=== PATIENT | female | born 1955 | race Caucasian/White ===

== ENCOUNTER → 2016-10-20 | Outpatient (CLI) | payer OTHER ==
[~2016-10-20] MED LIST: MULT-506 PO; OMEG10002 PO
== END | disposition home or self-care (01) ==
LOC: C.MAMM 14:50
PROVIDERS: ATTEND Specialist
DX: Z12.31 Encounter for screening mammogram for malignant neoplasm of breast (principal)

== ENCOUNTER → 2016-10-28 | Outpatient (CLI) | payer OTHER ==
--- NOTE | 2016-10-28 17:07 | MAMMOGRAPHY REPORT ---
BILATERAL DIGITAL DIAGNOSTIC MAMMOGRAM: 10/20/2016 CLINICAL HISTORY: Routine screening. Patient has no complaints. At the time of right breast stereo tactic biopsy approximately 1 year ago, it was recommended that the patient return for a short inter kasie follow-up for other non-biopsied clustered microcalcifications in the right breast. No follow-u p was obtained at our institution. TECHNIQUE: Bilateral breast tomosynthesis in addition to standard 2D mammography was performed. Curr ent study was also evaluated with a Computer Aided Detection (CAD) system. COMPARISON: Comparison is made to exams dated: 10/16/2015 mammogram, 10/02/2015 mammogram, 5 mammogram, 10/16/2015 stereotactic biopsy, and 10/02/2015 [facility] . BREAST COMPOSITION: The tissue of both breasts is heterogeneously dense, which may obscure small ma sses. FINDINGS: There are stable post biopsy changes in the upper outer posterior right breast, at the sit e of prior benign stereotactic biopsy. Other groupings of microcalcifications remain in the lateral and medial superior right breast for which additional follow-up spot magnification views were recom mended at the time of stereotactic biopsy performed 10/16/2015. The patient returned for additional spot magnification views on 10/28/2016. When comparing these additional images, particularly the s pot magnification ML views, the additional cluster of microcalcifications inferior to the biopsied c luster, also inferior to the biopsy marker clip on the current view, appears stable. It measures ap proximately 6 mm in greatest dimension. This is located in the medial posterior breast on the CC vi ew. A few other scattered round microcalcifications are identified but no other definite grouping o r cluster. No new suspicious mass, architectural distortion or other cluster of new microcalcifications are see n bilaterally. IMPRESSION: ACR-BI-RADS CATEGORY 3: PROBABLY BENIGN Stable mammographic appearance of the breasts, without new suspicious mass or architectural distorti on. A 6 mm grouping of round and punctate microcalcifications in the upper inner posterior right br east has been stable based on spot magnification views dating back to 10/02/2015, and appeared simil ar to the biopsied cluster that yielded benign pathology. Options of stereotactic biopsy or another close follow-up exam were provided and we will opt to follow these calcifications closely with repe at spot magnification views. Given that it has been 12 months since the prior spot magnification vi ews, would recommend a bilateral diagnostic mammogram including right spot magnification views in 12 months. Approximately 10% of breast cancers are not detected with mammography. A negative mammographic repor t should not delay biopsy if a clinically suggestive mass is present. Paige Flor M.D. ay/:10/28/2016 15:17:10 Well Testing Operator: Tammy ALBERTO(Maria R)(Amber)(BD), [facility] letter sent: Follow Up Recommended 3 BI-RADS Code: ACR-BI-RADS Category 3: Probably Benign
== END | disposition home or self-care (01) ==
LOC: C.MAMM 14:29
PROVIDERS: ATTEND Specialist
DX: R92.0 Mammographic microcalcification found on diagnostic imaging of breast (principal)

== ENCOUNTER 2016-12-03 17:29 | Emergency (ER) | payer OTHER ==
[~2016-12-03] VITALS: Ht 157.5 cm; Wt 71.6 kg
[2016-12-03 17:40] VITALS: TEMP 37.4; Ht 157.5 cm; Wt 71.6 kg
[2016-12-03] MEDS ORDERED: SODIUM CHLORIDE 0.9% 1000ML 1,000 ML IV SCH ×2 (18:00→19:00)
[2016-12-03] MEDS ORDERED: MULT-506 PO (19:27)
[2016-12-03] MEDS ORDERED: OMEG10002 PO (19:27)
--- NOTE | 2016-12-03 20:19 | EMERGENCY ROOM VISIT NOTE ---
History First contact with patient: 19:34 Chief Complaint: VOMITING Stated Complaint: SEVERE DIARRHEA/VOMITING, DEHYDRATED- REFERRED Nursing Triage Summary: pt reports eating at [employer] yest. severe n/v/d since his am. Seen at walk in clinic. Teagan PEDERSON, sent to ED for Iv fluids. "I can't drink anything" History of Present Illness Source of History: patient Onset: earlier today Position: other (global) Symptom Intensity: vomiting 2x today; diarrhea 10x today Quality: other (vomiting and diarrhea) Timing: other (persistent) Associated Symptoms: + nausea Review of Systems See HPI for pertinent positives & negatives. A total of 10 systems reviewed and were otherwise negative. Past Medical & Surgical No pertinent history stated. Family History No family history stated. Social History Smoking Status: Never Smoker Current/Historical Medications Scheduled Multivitamin (Multivitamin), 1 TAB PO DAILY Kouts-3 Fatty Acids (Fish Oil), 1,000 MG PO DAILY Allergies Coded Allergies: Thimerosal (Unverified Allergy, Severe, SWELLING, 12/03/16) BEE STING (Unverified Allergy, Unknown, SWELLING, 12/03/16) Influenza Vaccines (Unverified Allergy, Unknown, RASH, 12/03/16) Nickel (Unverified Allergy, Unknown, RASH, 12/03/16) Penicillins (Unverified Allergy, Unknown, RASH, 12/03/16) [place] (Unverified Allergy, Unknown, TONGUE SWELLS, 12/03/16) Physical Exam Vital Signs Date Time Temp Pulse Resp B/P Pulse Ox O2 Delivery O2 Flow Rate FiO2 12/03/16 19:15 93 16 117/63 94 Room Air 12/03/16 17:40 37.4 104 18 108/63 100 Room Air Medical Decision & Procedures Laboratory Results Test 12/03/16 19:38 Laboratory results as stated above per my review. Medications Administered Medications (Trade) Dose Ordered Sig/Flora Route Start Time Stop Time Status Last Admin Dose Admin Sodium Chloride (Nss 1000ml) 999 ml @ 999 mls/hr Q1H IV 12/03/16 18:00 12/03/16 18:59 DC 12/03/16 19:10 999 MLS/HR Departure Information Referrals Tammy Main M.D. (PCP) Patient Instructions My [facility]
[2016-12-03 20:23] VITALS: BP 127/61; PULSE 96; O2SAT 95
== END 2016-12-03 20:26 | disposition home or self-care (01) ==
LOC: C.EDB 17:30
DX: E86.0 Dehydration (principal); K52.9 Noninfective gastroenteritis and colitis, unspecified

== ENCOUNTER → 2017-12-06 | Outpatient (CLI) | payer OTHER ==
--- NOTE | 2017-12-06 15:41 | MAMMOGRAPHY REPORT ---
BILATERAL DIGITAL DIAGNOSTIC MAMMOGRAM TOMOSYNTHESIS WITH CAD: 12/06/2017 CLINICAL HISTORY: 62-year-old woman presents at time of annual bilateral mammography. Also reassess loosely grouped non-biopsied round and punctate microcalcifications in the upper inner posterior righ t breast. The patient has a history of prior benign right breast stereotactic biopsy in the upper ou ter quadrant. TECHNIQUE: Breast tomosynthesis in addition to standard 2D mammography was performed. Spot magnific ation right CC and MLO views were also obtained. Current study was also evaluated with a Computer ded Detection (CAD) system. COMPARISON: Comparison is made to exams dated: 10/20/2016 mammogram, 10/16/2015 mammogram, 10/16/2015 s tereotactic biopsy, 10/02/2015 mammogram, 10/02/2015 ultrasound, and 09/13/2015 mammogram - [facility]. BREAST COMPOSITION: The tissue of both breasts is heterogeneously dense, which may obscure small mas ses. FINDINGS: The glandular pattern is similar to prior exams. There is a stable biopsy marker clip in t he upper outer posterior right breast. The spot magnification views redemonstrate a loose grouping o f round and punctate microcalcifications in the upper inner posterior right breast. These are stable dating back to at least 10/20/2016 based on spot magnification views, and likely also stable dating b ack to 10/02/2015 based on the spot magnification ML view. Although these most likely represent joyce tional benign microcalcifications such as fibrocystic change, another 12 month follow-up diagnostic m ammogram including spot magnification views is recommended to ensure longer stability. No other new suspicious masses, calcifications, areas of architectural distortion or asymmetries are identified bilaterally. IMPRESSION: ACR-BI-RADS CATEGORY 3: PROBABLY BENIGN Stable bilateral mammograms including a loose grouping of round and punctate microcalcifications in t he upper inner posterior right breast. Another 12 month follow-up diagnostic mammogram including rig ht spot magnification views is recommended to ensure longer stability of the probably benign microcal cifications. Annual left mammography will also be due at that time. These results and recommendations were discussed with the patient at the time of the exam. Approximately 10% of breast cancers are not detected with mammography. A negative mammographic report should not delay biopsy if a clinically suggestive mass is present. Paige Flor M.D. ay/:12/06/2017 11:58:19 Employee Relations Manager: Kerry ALBERTO(R)(M), [facility] letter sent: Follow Up Recommended 3 BI-RADS Code: ACR-BI-RADS Category 3: Probably Benign
== END | disposition home or self-care (01) ==
LOC: C.MAMM 11:03
PROVIDERS: ATTEND Specialist
DX: R92.0 Mammographic microcalcification found on diagnostic imaging of breast (principal)